=== PATIENT | male | born 1990 | race Caucasian/White ===

== ENCOUNTER 2017-03-23 10:16 | Inpatient (IN) | payer MEDICAID ==
[~2017-03-23] VITALS: Ht 180.3 cm; Wt 74.5 kg
[2017-03-23] VITALS (12 sets, daily range): BP systolic 111–135; BP diastolic 60–83
[2017-03-23] MEDS ORDERED: DICY10CA53 PO (10:40)
[2017-03-23] MEDS ORDERED: SALS750T11 PO (10:40)
[2017-03-23] MEDS ORDERED: MORPHINE SULFATE 4 MG/ML, 1ML IVPush PRN (11:00)
[2017-03-23] MEDS ORDERED: SODIUM CHLORIDE 0.9% 1,000ML IVBOLUS ONE (11:00)
[2017-03-23] MEDS ORDERED: SODIUM CHLORIDE FLUSH 10ML SYR IVF ONE (11:00)
[2017-03-23 11:26] LABS: ASPARTATE AMINO TRANSFERASE 15 U/L (15-37); BLOOD UREA NITROGEN 10 mg/dL (7-18)
[2017-03-23 11:42] LABS: DIFF TOTAL CELLS COUNTED 100 CELL DIFF
[2017-03-23 11:49] LABS: ANISOCYTOSIS 1+; HYPOCHROMIA 1+; MICROCYTOSIS 2+; OVALOCYTES 1+; POLYCHROMASIA 1+; TARGET CELLS 1+; VERIFY COUNTS? YES
[2017-03-23] MEDS ORDERED: MORPHINE SULFATE 4 MG/ML, 1ML ONE (11:50)
[2017-03-23] MEDS ORDERED: OMNIPAQUE 350 MG/ML, 100ML BOTTLE ONE (12:22)
[2017-03-23] MEDS ORDERED: ACETAMINOPHEN 325 MG TABLET PO PRN (15:00)
[2017-03-23] MEDS ORDERED: ONDANSETRON ODT 4 MG PO PRN (15:00)
[2017-03-23] MEDS ORDERED: DIPHENHYDRAMINE 25 MG CAPSULE PO PRN (15:00)
[2017-03-23] MEDS: SODIUM CHLORIDE 0.9% 1,000 ML IV SCH (19:23)
[2017-03-23] MEDS: NICOTINE 7 MG/24 HR PATCH.TD24 TD SCH (19:23)
[2017-03-24 02:00] VITALS: BP_SYST 107; BP_SYST 111; BP_DIAS 64; BP_DIAS 73; BP_DIAS 74
[2017-03-24] MEDS: SODIUM CHLORIDE 0.9% 1,000 ML IV SCH ×2 (04:01→14:16)
[2017-03-24 05:34] LABS: BLOOD UREA NITROGEN 7 mg/dL (7-18)
[2017-03-24 05:43] LABS: ASPARTATE AMINO TRANSFERASE 18 U/L (15-37)
[2017-03-24 06:22] LABS: ANISOCYTOSIS 2+
[2017-03-24 06:23] LABS: HYPOCHROMIA 1+; MICROCYTOSIS 1+; OVALOCYTES 1+; POLYCHROMASIA 1+
[2017-03-24 07:49] VITALS: BP_SYST 106; BP_SYST 114; BP_SYST 115; BP_DIAS 66; BP_DIAS 73; BP_DIAS 76
[2017-03-24 15:01] VITALS: BP_SYST 116; BP_SYST 117; BP_SYST 123; BP_DIAS 64; BP_DIAS 69; BP_DIAS 73
[2017-03-24] MEDS ORDERED: GOLYTELY 4,000ML ORAL.SOL PO ONE (18:00)
[2017-03-24] MEDS: MORPHINE SULFATE 4 MG/ML, 1ML IVPush PRN (19:34)
[2017-03-24] MEDS: NICOTINE 7 MG/24 HR PATCH.TD24 TD SCH (19:34)
[2017-03-24 19:38] VITALS: BP 124/80
[2017-03-24 19:39] VITALS: BP_SYST 119; BP_SYST 124; BP_DIAS 76; BP_DIAS 79
[2017-03-25] VITALS (7 sets, daily range): BP systolic 109–120; BP diastolic 64–73
[2017-03-25] MEDS: SODIUM CHLORIDE 0.9% 1,000 ML IV SCH ×2 (00:02→10:47)
[2017-03-25 05:10] LABS: BLOOD UREA NITROGEN 7 mg/dL (7-18)
[2017-03-25 05:14] LABS: ASPARTATE AMINO TRANSFERASE 13 U/L (15-37)
[2017-03-25] MEDS: MORPHINE SULFATE 4 MG/ML, 1ML IVPush PRN ×2 (09:03→15:51)
[2017-03-25] MEDS ORDERED: PROPOFOL 10 MG/ML, 20ML ONE (14:05)
[2017-03-25] MEDS ORDERED: HYDROmorphone 1 MG/ML, 1ML IV PRN (15:00)
[2017-03-25] MEDS ORDERED: OXYcodone 5 MG/5 ML ORAL.SOL UDC PO PRN (15:00)
[2017-03-25] MEDS ORDERED: LABETALOL 5MG/ML, 20ML IV PRN (15:00)
[2017-03-25] MEDS ORDERED: ONDANSETRON 2MG/ML, 2ML IVPush PRN (15:00)
[2017-03-25] MEDS ORDERED: ACETAMINOPHEN 325 MG TABLET PO PRN (15:00)
[2017-03-25] MEDS ORDERED: MIDAZOLAM 1 MG/ML, 5ML IV PRN (15:00)
[2017-03-25] MEDS ORDERED: FENTANYL PF 100 MCG/2ML IV PRN (15:00)
[2017-03-25] MEDS ORDERED: MEPERIDINE/PF 25MG/0.5ML IVPush PRN (15:00)
[2017-03-25] MEDS ORDERED: PROMETHAZINE 25 MG/ML, 1ML IV PRN (15:00)
[2017-03-25] MEDS ORDERED: ALBUTEROL/IPRATROPIUM 2.5MG/0.5MG, 3 ML NPPB PRN (15:00)
[2017-03-25] MEDS: NICOTINE 7 MG/24 HR PATCH.TD24 TD SCH (20:17)
[2017-03-26 01:41] VITALS: BP 120/76
[2017-03-26] MEDS: SODIUM CHLORIDE 0.9% 1,000 ML IV SCH ×2 (02:44→18:33)
[2017-03-26 05:57] LABS: BLOOD UREA NITROGEN 9 mg/dL (7-18)
[2017-03-26 07:05] VITALS: BP 120/76
[2017-03-26] MEDS: MORPHINE SULFATE 4 MG/ML, 1ML IVPush PRN (09:49)
[2017-03-26 13:00] VITALS: BP 121/71
[2017-03-26 18:40] VITALS: BP 129/72
[2017-03-26] MEDS: NICOTINE 7 MG/24 HR PATCH.TD24 TD SCH (19:30)
[2017-03-27 03:57] VITALS: BP 127/83
[2017-03-27] MEDS: SODIUM CHLORIDE 0.9% 1,000 ML IV SCH ×2 (04:40→16:36)
[2017-03-27 06:14] LABS: BLOOD UREA NITROGEN 13 mg/dL (7-18)
[2017-03-27 06:58] VITALS: BP 124/83
[2017-03-27 13:50] VITALS: BP 121/78
[2017-03-27 18:35] VITALS: BP 139/79
[2017-03-27] MEDS: NICOTINE 7 MG/24 HR PATCH.TD24 TD SCH (22:35)
[2017-03-28 01:38] VITALS: BP 142/90
[2017-03-28] MEDS: SODIUM CHLORIDE 0.9% 1,000 ML IV SCH ×2 (01:38→11:14)
[2017-03-28 08:04] VITALS: BP 144/83
[2017-03-28 08:19] LABS: TOTAL IRON BINDING CAPACITY 409 mcg/dL (250-450)
[2017-03-28 13:14] VITALS: BP 135/81
[2017-03-28 18:30] VITALS: BP 131/76
[2017-03-28] MEDS: NICOTINE 7 MG/24 HR PATCH.TD24 TD SCH (19:55)
[2017-03-29 02:22] VITALS: BP 121/65
[2017-03-29 08:53] VITALS: BP 127/73
[2017-03-29] MEDS ORDERED: PRED20TA PO (09:21)
== END 2017-03-29 11:57 | disposition home or self-care (01) | DRG 386 ==
LOC: ED 11:00 → EDIP 12:49 → 3NE 15:21 → DCLOUNGE 03-29 11:27
PROVIDERS: ADMIT Internal Medicine; ATTEND Hospitalist
PROC: 30233N1 Transfusion of Nonautologous Red Blood Cells into Peripheral Vein, Percutaneous Approach (ICD-10-PCS; 2017-03-23)
PROC: 0DBE8ZX Excision of Large Intestine, Via Natural or Artificial Opening Endoscopic, Diagnostic (ICD-10-PCS; principal; 2017-03-25 14:00)
DX: K51.00 Ulcerative (chronic) pancolitis without complications (principal); K92.1 Melena; I47.1 Supraventricular tachycardia; J45.909 Unspecified asthma, uncomplicated; F15.90 Other stimulant use, unspecified, uncomplicated; D75.89 Other specified diseases of blood and blood-forming organs; D50.0 Iron deficiency anemia secondary to blood loss (chronic); F17.210 Nicotine dependence, cigarettes, uncomplicated; D50.9 Iron deficiency anemia, unspecified; Z79.52 Long term (current) use of systemic steroids
CPT/HCPCS: 36415; 36430; 74177; 80048; 80053; 83540; 83550; 83605; 83735; 84100; 85018; 85025; 85610; 85730; 86140; 86480; 86850; 86900; 86923; 87046; 87324; 87328; 87329; 87340; 87899; 88305; 89055; 96374; J2704; Q9967; J2920; J7030; J7512; P9016